=== PATIENT | male | born 1955 | race Caucasian/White ===

== ENCOUNTER 2023-06-15 07:42 | Emergency (ER) | payer MEDICARE | END 2023-06-15 08:55 | disposition home or self-care (01) | LOC: LL.ED 07:42 | DX: R33.9 Retention of urine, unspecified (principal); I10 Essential (primary) hypertension; Z86.16 Personal history of COVID-19; Z79.899 Other long term (current) drug therapy | CPT/HCPCS: 51702; 51798; 99283; 99284 ==

== ENCOUNTER 2024-06-19 20:58 | Emergency (ER) | payer MEDICARE | END 2024-06-19 21:28 | disposition home or self-care (01) | LOC: LL.ED 20:58 | DX: R31.9 Hematuria, unspecified (principal); I10 Essential (primary) hypertension; Z90.79 Acquired absence of other genital organ(s); Z79.899 Other long term (current) drug therapy; Z86.16 Personal history of COVID-19 | CPT/HCPCS: 99283; 99284 ==